=== PATIENT | male | born 1995 | race African-American/Black ===

== ENCOUNTER 2017-06-04 08:48 | Emergency (ER) | payer BC, MEDICAID ==
[~2017-06-04] VITALS: Ht 172.7 cm; Wt 70.0 kg
[2017-06-04] MEDS ORDERED: ALBU2.5V13 IH (08:51)
[2017-06-04 09:20] LABS: BASOPHILS % 0.7 % (0.0-2.0); EOSINOPHILS % 4.2 % (0.0-5.0); HEMATOCRIT. 46.8 % (42.0-52.0); HEMOGLOBIN. 16.1 g/dL (14.0-18.0); LYMPHOCYTES % 44.1 % (20.0-50.0); MEAN CORPUSCULAR HEMOGLOBIN 31.8 pg (28.0-32.0); MEAN CORPUSCULAR VOLUME 92.7 fL (80.0-94.0); MEAN PLATELET VOLUME 7.2 fl (7.4-10.4); MONOCYTES % 5.2 % (2.0-8.0); NEUTROPHILS % 45.8 % (40.0-76.0); PLATELET 247 x1000/uL (130-400); RED BLOOD CELL COUNT 5.05 mill/uL (4.7-6.1); RED CELL DISTRIBUTION WIDTH 13.8 % (11.6-14.6)
[2017-06-04 09:25] LABS: INR 1.1; PARTIAL THROMBOPLASTIN TIME 29.9 sec (23.4-31.0); PROTHROMBIN TIME 11.5 sec (9.4-11.6)
[2017-06-04 09:34] LABS: CARBON DIOXIDE 31 mEq/L (21-32); CHLORIDE 105 mEq/L (98-107); TROPONIN I < 0.02 ng/mL (0.00-0.04)
[2017-06-04 09:46] LABS: CREATINE KINASE MB FRACTION 1.3 ng/mL (0.5-3.6)
[2017-06-04] MEDS ORDERED: SODIUM CHLORIDE 0.9% 1,000 ML IV ONE (09:55)
[2017-06-04] MEDS ORDERED: ALBUTEROL (0.083%) 2.5MG/3ML NEB HHN STA (09:55)
[2017-06-04] MEDS ORDERED: METHYLPREDNISOLONE SOD SUCC 125 MG/2 ML VIAL IV STA (09:55)
[2017-06-04] MEDS ORDERED: IPRATROPIUM BROMIDE (0.02%) 0.5MG/2.5ML NEB HHN STA (09:55)
[2017-06-04 11:30] VITALS: BP 126/72
== END 2017-06-04 12:19 | disposition home or self-care (01) ==
LOC: ER 08:55
DX: J20.9 Acute bronchitis, unspecified (principal); J45.901 Unspecified asthma with (acute) exacerbation; R93.8 Abnormal findings on diagnostic imaging of other specified body structures
CPT/HCPCS: 36415; 71010; 80053; 82550; 82553; 83690; 83880; 84484; 85025; 85610; 85730; 93005; 96361; 96374; 99285; J2930; J7030; J7611; Z7610

== ENCOUNTER 2017-06-30 02:44 | Emergency (ER) | payer BC, MEDICAID ==
[~2017-06-30] VITALS: Ht 175.3 cm; Wt 77.0 kg
[~2017-06-30 02:44] MED LIST: ALBU2.5V13 IH
[2017-06-30 02:53] VITALS: BP 120/74
== END 2017-06-30 07:35 | disposition left against medical advice (07) ==
LOC: ER 02:44
DX: Z53.21 Procedure and treatment not carried out due to patient leaving prior to being seen by health care provider (principal)

== ENCOUNTER 2018-01-17 09:22 | Emergency (ER) | payer MEDICAID ==
[~2018-01-17] VITALS: Ht 167.6 cm; Wt 64.0 kg
[2018-01-17] MEDS ORDERED: METHYLPREDNISOLONE SOD SUCC 125 MG/2 ML VIAL IV STA (10:00)
[2018-01-17] MEDS ORDERED: IPRATROPIUM BROMIDE (0.02%) 0.5MG/2.5ML NEB HHN STA (10:00)
[2018-01-17] MEDS ORDERED: ALBUTEROL (0.083%) 2.5MG/3ML NEB HHN STA (10:00)
[2018-01-17] MEDS ORDERED: MAGNESIUM 2 G PREMIX 50 ML IV ONE (10:00)
[2018-01-17 11:35] VITALS: BP 110/70
== END 2018-01-17 11:43 | disposition home or self-care (01) ==
LOC: ER 09:22
DX: J45.901 Unspecified asthma with (acute) exacerbation (principal); Z79.899 Other long term (current) drug therapy
CPT/HCPCS: 94640; 96365; 96375; 99284; J2930; J3475; J7611; Z7610

== ENCOUNTER 2018-09-29 21:16 | Emergency (ER) | payer MEDICAID ==
[~2018-09-29] VITALS: Ht 177.8 cm; Wt 77.0 kg
[2018-09-29 23:05] LABS: HEMATOCRIT. 42.7 % (42.0-52.0); HEMOGLOBIN. 14.3 g/dL (14.0-18.0); MEAN CORPUSCULAR HEMOGLOBIN 31.2 pg (28.0-32.0); MEAN CORPUSCULAR VOLUME 92.8 fL (80.0-94.0); MEAN PLATELET VOLUME 7.1 fl (7.4-10.4); PLATELET 205 x1000/uL (130-400); RED CELL DISTRIBUTION WIDTH 13.5 % (11.6-14.6)
[2018-09-29 23:17] LABS: PLATELET ESTIMATE NORMAL
[2018-09-30 00:56] VITALS: BP 98/61
== END 2018-09-30 01:48 | disposition home or self-care (01) ==
LOC: ER 21:16
DX: J45.901 Unspecified asthma with (acute) exacerbation (principal); Z79.899 Other long term (current) drug therapy
CPT/HCPCS: 36415; 71046; 99284

== ENCOUNTER 2019-03-30 22:43 | Emergency (ER) | payer MEDICAID ==
[~2019-03-30] VITALS: Ht 170.2 cm; Wt 75.0 kg
[2019-03-30] MEDS ORDERED: IPRATROPIUM BROMIDE (0.02%) 0.5MG/2.5ML NEB HHN STA (23:21)
[2019-03-30] MEDS ORDERED: PREDNISONE 20MG TABLET PO STA (23:21)
[2019-03-30] MEDS ORDERED: ALBUTEROL (0.083%) 2.5MG/3ML NEB HHN STA (23:21)
[2019-03-31 00:54] VITALS: BP 111/48
== END 2019-03-31 01:06 | disposition home or self-care (01) ==
LOC: ER 22:43
DX: J45.901 Unspecified asthma with (acute) exacerbation (principal)
CPT/HCPCS: 94640; 99283; J7512; J7611; Z7610

== ENCOUNTER 2019-06-27 02:19 | Emergency (ER) | payer MEDICAID ==
[~2019-06-27] VITALS: Ht 180.3 cm; Wt 92.0 kg
[2019-06-27] MEDS ORDERED: PREDNISONE 20MG TABLET PO STA (02:43)
[2019-06-27] MEDS ORDERED: ALBUTEROL (0.083%) 2.5MG/3ML NEB HHN STA (02:43)
[2019-06-27] MEDS ORDERED: IPRATROPIUM BROMIDE (0.02%) 0.5MG/2.5ML NEB HHN STA (02:43)
[2019-06-27 05:15] VITALS: BP 129/85
== END 2019-06-27 05:19 | disposition home or self-care (01) ==
LOC: ER 02:19
DX: J45.901 Unspecified asthma with (acute) exacerbation (principal); Z79.899 Other long term (current) drug therapy
CPT/HCPCS: 94640; 99283; J7512; J7611; Z7610